=== PATIENT | female | born 1935 | race Caucasian/White ===

== ENCOUNTER 2017-04-25 18:11 | Emergency (ER) | payer MEDICARE, OTHER ==
[2016-09-05 12:34] VITALS: BMI 23.3
[~2017-04-25 18:11] MED LIST: ASPIRIN81 MG PO; AVAPRO150 MG PO; AVAPRO300 MG PO; HEPARIN SOD5000 U/ML SQ; HYDRALAZINE HCL25 MG PO; INDERAL10 MG PO; NORVASC5 MG PO; PRAVACHOL20 MG PO; PRAVASTATIN SOD10 MG PO; PROPRANOLOL HCL60 MG PO; PROTONIX40 MG PO; RISPERDAL0.5 MG PO; ZOFRAN4 MG PO
[2017-04-25 19:26] LABS: BASOPHILS 0.3 % (0-2); EOSINOPHILS 1.9 % (0-7); HEMATOCRIT 37.9 % (36.0-48.0); HEMOGLOBIN 12.2 g/dL (12-16); IMMATURE GRANULOCYTES 0.5 % (0-5); LYMPHOCYTES 17.2 % (15-50); MCH 31.1 pg (26.0-34.0); MCHC 32.2 g/dL (31.0-37.0); MCV 96.7 fL (80.0-100.0); NEUTROPHILS 69.1 % (40-80); PLATELET COUNT 188 10x3/uL (130-400); RBC 3.92 10x6/uL (4.00-5.40); WBC 7.8 10x3/uL (4.8-10.8)
[2017-04-25 19:44] LABS: APTT 23.4 SECONDS (22.8-39.4); INR 0.97 (0.85-1.17); PROTIME 12.7 SECONDS (11.6-15.0)
[2017-04-25 19:46] LABS: ALBUMIN 3.5 g/dL (3.4-5.0); ANION GAP 10.2 mmol/L (8-16); BILIRUBIN - TOTAL 0.48 mg/dL (0.2-1.3); CALCIUM 8.9 mg/dL (8.5-10.1); CARBON DIOXIDE 30.3 mmol/L (21.0-32.0); CREATININE - SERUM 1.1 mg/dL (0.6-1.3); POTASSIUM - SERUM 3.5 mmol/L (3.5-5.1); PROTEIN - SERUM 7.4 g/dL (6.4-8.2)
== END 2017-04-25 20:29 | disposition home or self-care (01) ==
LOC: D.ER 18:11
PROVIDERS: Physician Assistant Medical
DX: S00.93XA Contusion of unspecified part of head, initial encounter (principal); W01.0XXA Fall on same level from slipping, tripping and stumbling without subsequent striking against object, initial encounter; Y93.89 Activity, other specified; Y92.830 Public park as the place of occurrence of the external cause; R04.0 Epistaxis; I10 Essential (primary) hypertension; R09.89 Other specified symptoms and signs involving the circulatory and respiratory systems; M54.2 Cervicalgia

== ENCOUNTER 2017-07-31 08:47 | Emergency (ER) | payer MEDICARE, OTHER ==
[2016-09-05 12:34] VITALS: BMI 23.3
[2017-07-31 09:43] LABS: BASOPHILS 0.3 % (0-2); EOSINOPHILS 1.3 % (0-7); HEMATOCRIT 39.4 % (36.0-48.0); HEMOGLOBIN 12.9 g/dL (12-16); IMMATURE GRANULOCYTES 0.2 % (0-5); LYMPHOCYTES 14.2 % (15-50); MCH 31.2 pg (26.0-34.0); MCHC 32.7 g/dL (31.0-37.0); MCV 95.4 fL (80.0-100.0); MEAN PLATELET VOLUME 11.9 fL (7.4-10.4); MONOCYTES 10.6 % (2-11); NEUTROPHILS 73.4 % (40-80); PLATELET COUNT 202 10x3/uL (130-400); RBC 4.13 10x6/uL (4.00-5.40); RDW 13.5 % (11.5-14.5); WBC 9.4 10x3/uL (4.8-10.8)
[2017-07-31 09:59] LABS: ALBUMIN 3.8 g/dL (3.4-5.0); ANION GAP 13.6 mmol/L (8-16); BILIRUBIN - TOTAL 0.74 mg/dL (0.2-1.3); CALCIUM 9.9 mg/dL (8.5-10.1); CARBON DIOXIDE 26.9 mmol/L (21.0-32.0); CREATININE - SERUM 1.1 mg/dL (0.6-1.3); POTASSIUM - SERUM 3.5 mmol/L (3.5-5.1); PROTEIN - SERUM 7.8 g/dL (6.4-8.2)
[2017-07-31 10:05] LABS: INR 0.94 (0.85-1.17); PROTIME 12.4 SECONDS (11.6-15.0)
[2017-07-31 12:33] LABS: APPEARANCE CLEAR (CLEAR); BACTERIA FEW /hpf (NONE SEEN); BILIRUBIN NEGATIVE (NEGATIVE); COLOR YELLOW (YELLOW); EPITHELIAL CELLS RARE /hpf (0-5); GLUCOSE 50 mg/dL (NEGATIVE); KETONE MODERATE mg/dL (NEGATIVE); NITRITE NEGATIVE (NEGATIVE); PROTEIN NEGATIVE (NEGATIVE); RED CELLS - URINE RARE /hpf (0-5); UROBILINOGEN NORMAL (NORMAL)
--- NOTE | 2017-07-31 14:58 | NUR ---
Rehab Note- Acute Rehab Prescreen order received. Visited with the patient and daughter. Reviewed medical record- no acute medical management for acute inpatient rehab stay at this time. Notified KRYSTAL Romero- needs bedside commade, seems to be having issues of falling during the night when attempting to get up to go to the restroom. Thank you for this referral! Gabby Shah RN Clinical Liaison, [facility]
== END 2017-07-31 15:48 | disposition home or self-care (01) ==
LOC: D.ER 08:47
PROVIDERS: Emergency Medicine
DX: Z91.81 History of falling (principal); I10 Essential (primary) hypertension; W19.XXXA Unspecified fall, initial encounter; Y93.89 Activity, other specified; Y92.029 Unspecified place in mobile home as the place of occurrence of the external cause

== ENCOUNTER → 2017-08-22 09:17 | Outpatient (CLI) | payer MEDICARE, OTHER ==
[2016-09-05 12:34] VITALS: BMI 23.3
== END | disposition home or self-care (01) ==
LOC: D.CT 08-15 13:00
DX: R26.81 Unsteadiness on feet (principal); R93.8 Abnormal findings on diagnostic imaging of other specified body structures

== ENCOUNTER 2018-04-18 16:06 | Inpatient (IN) | payer MEDICARE, OTHER ==
[~2018-04-18] VITALS: Ht 162.6 cm; Wt 73.6 kg
--- NOTE | ~2018-04-18 | EC ---
PATIENT:SHANT MARTINEZ DATE OF SERVICE: 04/18/18 SEX: F MEDICAL RECORD: [id number] DATE OF : 35 LOCATION:D.MS [facility] AGE OF PATIENT: 82 ADMISSION DATE: 04/18/18 REFERRING PHYSICIAN: INTERPRETING PHYSICIAN: MENA YEN MD ECHOCARDIOGRAM REPORT ECHO CHARGES 4 ECHO COMPLETE Date: 04/19 CLINICAL DIAGNOSIS: CVA ECHOCARDIOGRAPHIC MEASUREMENTS (adult normal given) AC root (d.<3.7cm) 2.9 cm LV Septum d (<1.2 cm> 1.0 cm Valve Excursion 1.5 cm LV Septum (systole) 1.6 cm Left Atria (s.<4.0cm> 3.0 cm LVPW d(<1.2cm) 1.0 cm RV (d.<2.3cm) 1.5 cm LVPW (sytole) 1.9 cm LV diastole(<5.6CM) 4.7 cm MV E-F(>70mm/sec) cm LV systole 2.1 cm LVOT Diameter 1.5 cm MV exc.(>10mm) cm Est.ejection fraction (50-75%) % DOPPLER: LVIT cm/sec A 88.0 cm/sec E 90.0 cm/sec LA cm/sec RVSP 41.2 mmHg LVOT 86.0 cm/sec AOP1/2T m/s Asc. Ao 155 cm/sec RVOT 65.0 cm/sec RA cm/sec PA 72.0 cm/sec AV Gradient Peak 9.6 mmHg AV Mean 4.5 mmHg AV Area 1.3 cm MV Gradient Peak 4.4 mmHg MV Mean 1.6 mmHg MV Area cm COMMENTS: Hog Dropper: 1 RAFFY CARLOSOE Pie Bottomer: 4 Dr. Yen TAPE# PACS Pericardial Effusion N DATE OF SERVICE: PROCEDURE: Transthoracic echocardiogram. FINDINGS: 1. The patient has evidence of mild left ventricular hypertrophy. Inflow characteristics show pseudonormalization. Ejection fraction is 65% to 70%. 2. The left atrium is normal. 3. The aortic valve is normal. 4. The mitral valve has trace to mild mitral regurgitation. There is mitral ECHOCARDIOGRAM REPORT [id number] SHANT MARTINEZ annular calcification. 5. The tricuspid valve has moderate tricuspid regurgitation, RVSP of 41 mmHg. 6. The right ventricle is normal size, shape, and function. 7. The right atrium is normal. 8. The pulmonic valve has trace pulmonic insufficiency. CONCLUSIONS: The patient has evidence of mild hypertensive heart disease, otherwise normal echocardiogram for stated age. TRANSINT:[id number] Voice Confirmation ID: [id number] DOCUMENT ID: [id number] MENA YEN MD at 1702 CC: [id number] DICTATION DATE: 04/20/18 0752 HIP HOP ARTIST: 04/20/18 1117 [facility] IN [facility] [address] [id number]
[2018-04-18 17:21] LABS: BASOPHILS 0.5 % (0-2); EOSINOPHILS 2.1 % (0-7); HEMATOCRIT 37.1 % (36.0-48.0); IMMATURE GRANULOCYTES 0.2 % (0-5); LYMPHOCYTES 26.4 % (15-50); MCH 31.6 pg (26.0-34.0); MCHC 32.3 g/dL (31.0-37.0); MCV 97.6 fL (80.0-100.0); MONOCYTES 11.3 % (2-11); NEUTROPHILS 59.5 % (40-80); PLATELET COUNT 162 10x3/uL (130-400); RDW 13.6 % (11.5-14.5); WBC 6.2 10x3/uL (4.8-10.8)
[2018-04-18 17:27] LABS: APPEARANCE CLEAR (CLEAR); BILIRUBIN NEGATIVE (NEGATIVE); COLOR YELLOW (YELLOW); GLUCOSE 50 mg/dL (NEGATIVE); KETONE NEGATIVE (NEGATIVE); NITRITE NEGATIVE (NEGATIVE); PROTEIN 1+ mg/dL (NEGATIVE); UROBILINOGEN NORMAL (NORMAL)
[2018-04-18 17:29] LABS: BACTERIA FEW /hpf (NONE SEEN); EPITHELIAL CELLS 0-5 /hpf (0-5); RED CELLS - URINE 0-5 /hpf (0-5)
[2018-04-18 17:47] LABS: ALBUMIN 3.8 g/dL (3.4-5.0); ALKALINE PHOSPHATASE 85 U/L (46-116); ALT (SGPT) 7 U/L (10-68); BILIRUBIN - TOTAL 0.69 mg/dL (0.2-1.3); CALC OSMOLALITY 293 mosm/kg (275-300); CALCIUM 9.3 mg/dL (8.5-10.1); CARBON DIOXIDE 32.3 mmol/L (21.0-32.0); CHLORIDE - SERUM 106 mmol/L (98-107); CREATININE - SERUM 1.2 mg/dL (0.6-1.3); GLUCOSE 142 mg/dL (74-106); POTASSIUM - SERUM 3.8 mmol/L (3.5-5.1); PROTEIN - SERUM 7.5 g/dL (6.4-8.2); SODIUM 142 mmol/L (136-145); UREA NITROGEN 39 mg/dL (7-18); eGFR NON AFRICAN AMERICAN 45 mL/min (90-120)
[2018-04-18 17:58] LABS: CKMB 1.5 U/L (0.0-3.6); CREATINE KINASE 61 UL (21-215); PRO BNP 676 pg/mL (0-450); THYROID STIMULATING HORMONE 1.44 uIU/mL (0.36-3.74)
[2018-04-18 18:02] LABS: TROPONIN-I < 0.017 ng/mL (0.000-0.060)
[2018-04-18 19:23] VITALS: BP 150/55
[2018-04-19 00:26] VITALS: BP 170/61; Ht 162.6 cm; Wt 73.6 kg
[2018-04-19] MEDS ORDERED: INDERAL LA60 MG PO (00:47)
[2018-04-19] MEDS ORDERED: NORVASC5 MG PO (00:49)
[2018-04-19] MEDS ORDERED: BAYER CHEWABLE81 MG PO (00:49)
[2018-04-19 04:30] VITALS: BP 178/61
[2018-04-19 06:50] LABS: BASOPHILS 0.8 % (0-2); EOSINOPHILS 2.5 % (0-7); HEMATOCRIT 35.8 % (36.0-48.0); HEMOGLOBIN 11.6 g/dL (12-16); IMMATURE GRANULOCYTES 0.2 % (0-5); LYMPHOCYTES 28.2 % (15-50); MCH 31.1 pg (26.0-34.0); MCHC 32.4 g/dL (31.0-37.0); MEAN PLATELET VOLUME 12.1 fL (7.4-10.4); MONOCYTES 12.8 % (2-11); NEUTROPHILS 55.5 % (40-80); PLATELET COUNT 159 10x3/uL (130-400); RBC 3.73 10x6/uL (4.00-5.40); RDW 13.2 % (11.5-14.5); WBC 6.1 10x3/uL (4.8-10.8)
[2018-04-19 07:16] LABS: ANION GAP 9.2 mmol/L (8-16); CALCIUM 8.5 mg/dL (8.5-10.1); CARBON DIOXIDE 28.1 mmol/L (21.0-32.0); POTASSIUM - SERUM 3.3 mmol/L (3.5-5.1)
[2018-04-19 09:10] VITALS: BP 167/49
[2018-04-19 12:17] LABS: CKMB 2.6 U/L (0.0-3.6); CREATINE KINASE 89 UL (21-215)
[2018-04-19 12:19] LABS: TROPONIN-I < 0.017 ng/mL (0.000-0.060)
[2018-04-19 14:32] VITALS: BP 180/72
[2018-04-19 17:00] VITALS: BP 138/60
[2018-04-19 17:41] LABS: CKMB 2.5 U/L (0.0-3.6); CREATINE KINASE 86 UL (21-215)
[2018-04-19 17:48] LABS: TROPONIN-I < 0.017 ng/mL (0.000-0.060)
[2018-04-19 20:04] VITALS: BP 117/66
[2018-04-19 23:18] LABS: CKMB 2.1 U/L (0.0-3.6); CREATINE KINASE 77 UL (21-215)
[2018-04-19 23:19] LABS: TROPONIN-I < 0.017 ng/mL (0.000-0.060)
[2018-04-20 05:46] LABS: BASOPHILS 0.5 % (0-2); EOSINOPHILS 2.3 % (0-7); HEMATOCRIT 33.6 % (36.0-48.0); LYMPHOCYTES 26.8 % (15-50); MCH 30.7 pg (26.0-34.0); MCHC 32.7 g/dL (31.0-37.0); MEAN PLATELET VOLUME 11.9 fL (7.4-10.4); MONOCYTES 13.6 % (2-11); NEUTROPHILS 56.8 % (40-80); PLATELET COUNT 160 10x3/uL (130-400); RBC 3.58 10x6/uL (4.00-5.40); RDW 12.8 % (11.5-14.5); WBC 5.7 10x3/uL (4.8-10.8)
[2018-04-20 05:47] LABS: MCV 93.9 fL (80.0-100.0)
[2018-04-20 06:27] LABS: ALBUMIN 2.8 g/dL (3.4-5.0); ALKALINE PHOSPHATASE 68 U/L (46-116); ALT (SGPT) 9 U/L (10-68); BILIRUBIN - TOTAL 0.21 mg/dL (0.2-1.3); CALC OSMOLALITY 279 mosm/kg (275-300); CALCIUM 8.8 mg/dL (8.5-10.1); CARBON DIOXIDE 27.6 mmol/L (21.0-32.0); CHLORIDE - SERUM 107 mmol/L (98-107); CHOL - HDL RATIO 4.8 ratio (2.3-4.1); CHOLESTEROL, TOTAL 190 mg/dL (0-200); CREATININE - SERUM 0.7 mg/dL (0.6-1.3); GLUCOSE 120 mg/dL (74-106); HDL CHOLESTEROL 40 mg/dL (32-96); LDL CHOLESTEROL 128 mg/dL (0-100); LDL-HDL RATIO 3.2 ratio (1.5-3.5); POTASSIUM - SERUM 3.5 mmol/L (3.5-5.1); PROTEIN - SERUM 6.1 g/dL (6.4-8.2); SODIUM 139 mmol/L (136-145); TRIGLYCERIDE 113 mg/dL (30-200); UREA NITROGEN 16 mg/dL (7-18); eGFR NON AFRICAN AMERICAN 85 mL/min (90-120)
[2018-04-20 08:33] VITALS: BP 197/81
[2018-04-20 15:47] VITALS: BP 190/68
== END 2018-04-20 18:38 | DRG 64 ==
LOC: D.ER 16:06 → D.MS 22:28
PROVIDERS: Emergency Medicine; Family Medicine
DX: I63.9 Cerebral infarction, unspecified (principal); G92 Toxic encephalopathy; M62.82 Rhabdomyolysis; F01.50 Vascular dementia, unspecified severity, without behavioral disturbance, psychotic disturbance, mood disturbance, and anxiety; I10 Essential (primary) hypertension; E87.6 Hypokalemia; R79.89 Other specified abnormal findings of blood chemistry; D64.9 Anemia, unspecified

== ENCOUNTER 2018-04-20 16:25 | Inpatient (IN) | payer MEDICARE, OTHER ==
[~2018-04-20] VITALS: Ht 162.6 cm; Wt 61.2 kg
--- NOTE | ~2018-04-20 | RHP ---
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 HISTORY OF PRESENT ILLNESS: The patient is an 82-year-old female patient admitted to the inpatient rehab with a right middle cerebral artery infarction. She was brought into the ED on 04/16 by her daughters complaining of increasing confusion, short-term memory loss, and not eating much, home was in clutter and unlike her usual status of health. Daughter states this has going on for 2 weeks with progressively worsening. On exam, she was alert, disoriented, confused, fatigued, and had generalized weakness and poor balance. CT of her head was consistent with right middle cerebral artery CVA. She was noted to have UTI and a temperature of 100.9. She was admitted with Dr. Gomez's consult. Previously, she was independent without device for mobility and ADLs. She lives at [facility] and her meals are delivered to her. Currently, she is confused and disoriented at intervals. She reorients easily and her daughter is at her bedside. At times, she is [id number]-[id number] assist for ADLs and mobility. Her daughter plans to check her into an assisted living when she leaves rehab. Comorbidities include ischemic posterior temporal and occipital lobes, toxic metabolic encephalopathy, multi-infarct dementia, rhabdomyolysis, acute mental status changes, normocytic anemia, hypokalemia, UTI, hypertension, fever, fatigue, weakness, elevated D-dimer, and elevated BNP. PAST MEDICAL HISTORY: Significant for nothing in particular. PAST SURGICAL HISTORY: Includes hysterectomy. ALLERGIES: No known drug allergies. CURRENT MEDICATIONS: Really just include Inderal-LA 60 mg and chewable aspirin. HABITS: No alcohol or tobacco use. FAMILY HISTORY: Noncontributory. SOCIAL HISTORY: The patient once again will probably go to an assisted living from here. REVIEW OF SYSTEMS: Generally, does complain of weakness, worse on her left side. Denies cold, cough, or congestion. Denies any chest pain at this time. PHYSICAL EXAMINATION: VITAL SIGNS: Stable. GENERAL: An elderly female, in no acute distress. HEENT: Normocephalic and atraumatic. Mucosa moist. NECK: Supple. No lymphadenopathy. HISTORY AND PHYSICAL [id number] SHANT MARTINEZ LUNGS: Clear at this time. HEART: Regular rate and rhythm. ABDOMEN: Benign. EXTREMITIES: No clubbing, cyanosis, or edema. NEUROLOGIC: She does have noted weakness on her left side and some confusion. LABORATORY DATA: Admit labs show a white count of 4.7, H&H of 11.8 and 35.3, and platelet count was noted to be 173. Her sodium is 137, potassium 3.5, BUN and creatinine of 16 and 1.1, and blood sugars is noted to be 94. ASSESSMENT: This is an 82-year-old female patient admitted to rehab with a working diagnosis of right middle cerebral artery infarction with left body involvement. The patient has potential to make improvement. We will institute the following multidisciplinary therapies including, but not limited to physical, occupational, respiratory, speech, nutritional services, prosthetics and orthotics. Given her complex medical condition and risks for more complications, rehabilitation services cannot be provided at a low level of care such as a prison facility. PLAN: 1. Admit to [facility] for intensive inpatient therapy to include the following disciplines: A. Physical therapy to improve gait, all transfer skills and bed mobility to a modified independent level. B. Occupational therapy to improve activities of daily living to a modified independent level. C. Case management to assist with discharge planning and placement options. D. Nutrition to assist with nutritional needs. E. Rehabilitation nursing to assist in monitoring the patient's underlying medical conditions and to assist with any type of bowel or bladder management. 2. The patient's current medications and medical care will be continued. 3. The patient will be placed on standard fall precautions. 4. The patient's estimated length of stay is approximately 7-10 days. 5. We will discuss this patient during care team staff meeting this week. TRANSINT:[id number] Voice Confirmation ID: [id number] DOCUMENT ID: [id number] MOMO notes whether there has been none or any medical/functional change since admission: - No change since preadmission screen. MOMO attests patient continues to be appropriate for IRF: - Continues to be appropriate. HISTORY AND PHYSICAL [id number] SHANT MARTINEZ SCOTT MD at 1757 CC: [id number] DICTATION DATE: 04/21/18 0743 EARLY CHILDHOOD SPECIAL EDUCATOR: 04/21/18 0801 DIS IN 05/05/18 [facility] [address] [place] [address]
[~2018-04-20 16:25] MED LIST changes: +BAYER CHEWABLE81 MG PO; +INDERAL LA60 MG PO
[2018-04-20 18:22] VITALS: BP 180/67; BMI 23.2
[2018-04-20 19:00] VITALS: BP 144/59
[2018-04-21 06:55] LABS: BASOPHILS 0.6 % (0-2); EOSINOPHILS 2.8 % (0-7); HEMATOCRIT 35.3 % (36.0-48.0); HEMOGLOBIN 11.8 g/dL (12-16); LYMPHOCYTES 36.8 % (15-50); MCH 31.3 pg (26.0-34.0); MCHC 33.4 g/dL (31.0-37.0); MCV 93.6 fL (80.0-100.0); MEAN PLATELET VOLUME 11.8 fL (7.4-10.4); MONOCYTES 10.2 % (2-11); NEUTROPHILS 49.6 % (40-80); PLATELET COUNT 173 10x3/uL (130-400); RBC 3.77 10x6/uL (4.00-5.40); WBC 4.7 10x3/uL (4.8-10.8)
[2018-04-21 07:11] LABS: ANION GAP 6.7 mmol/L (8-16); CALCIUM 8.8 mg/dL (8.5-10.1); CARBON DIOXIDE 27.8 mmol/L (21.0-32.0); POTASSIUM - SERUM 3.5 mmol/L (3.5-5.1)
[2018-04-21 07:20] LABS: CREATININE - SERUM 1.1 mg/dL (0.6-1.3)
[2018-04-21 08:28] VITALS: BP 182/68
[2018-04-21 14:02] VITALS: Ht 162.6 cm; Wt 61.2 kg
[2018-04-21 19:00] VITALS: BP 200/75
[2018-04-22 06:58] LABS: BASOPHILS 1.1 % (0-2); EOSINOPHILS 2.5 % (0-7); HEMATOCRIT 34.9 % (36.0-48.0); HEMOGLOBIN 11.6 g/dL (12-16); LYMPHOCYTES 33.6 % (15-50); MCH 31.2 pg (26.0-34.0); MCHC 33.2 g/dL (31.0-37.0); MCV 93.8 fL (80.0-100.0); MEAN PLATELET VOLUME 11.8 fL (7.4-10.4); MONOCYTES 12.8 % (2-11); PLATELET COUNT 183 10x3/uL (130-400); RBC 3.72 10x6/uL (4.00-5.40); WBC 4.8 10x3/uL (4.8-10.8)
[2018-04-22 07:16] LABS: ANION GAP 8.3 mmol/L (8-16); CALCIUM 8.9 mg/dL (8.5-10.1); CARBON DIOXIDE 30.1 mmol/L (21.0-32.0); POTASSIUM - SERUM 3.4 mmol/L (3.5-5.1)
[2018-04-22 08:19] VITALS: BP 187/66
[2018-04-22 19:00] VITALS: BP 153/51
[2018-04-23 08:25] VITALS: BP 194/64
[2018-04-23 19:00] VITALS: BP 172/54
[2018-04-24 05:55] LABS: BASOPHILS 0.6 % (0-2); EOSINOPHILS 2.8 % (0-7); HEMATOCRIT 32.6 % (36.0-48.0); HEMOGLOBIN 10.5 g/dL (12-16); IMMATURE GRANULOCYTES 0.2 % (0-5); MCH 30.8 pg (26.0-34.0); MCHC 32.2 g/dL (31.0-37.0); MCV 95.6 fL (80.0-100.0); MEAN PLATELET VOLUME 11.8 fL (7.4-10.4); MONOCYTES 12.5 % (2-11); NEUTROPHILS 47.9 % (40-80); PLATELET COUNT 162 10x3/uL (130-400); RBC 3.41 10x6/uL (4.00-5.40); RDW 13.3 % (11.5-14.5)
[2018-04-24 06:19] LABS: ANION GAP 7.3 mmol/L (8-16); CALCIUM 8.7 mg/dL (8.5-10.1); CARBON DIOXIDE 32.8 mmol/L (21.0-32.0); CREATININE - SERUM 1.2 mg/dL (0.6-1.3)
[2018-04-24 06:20] LABS: POTASSIUM - SERUM 4.1 mmol/L (3.5-5.1)
[2018-04-24 08:14] VITALS: BP 183/60
[2018-04-24 19:00] VITALS: BP 127/73
[2018-04-26 08:00] VITALS: BP 164/53
[2018-04-26 20:00] VITALS: BP 203/64
[2018-04-27 07:28] LABS: BASOPHILS 0.6 % (0-2); EOSINOPHILS 3.6 % (0-7); HEMOGLOBIN 11.6 g/dL (12-16); IMMATURE GRANULOCYTES 0.2 % (0-5); MCH 30.9 pg (26.0-34.0); MCHC 32.2 g/dL (31.0-37.0); MEAN PLATELET VOLUME 11.5 fL (7.4-10.4); MONOCYTES 16.3 % (2-11); NEUTROPHILS 55.3 % (40-80); RBC 3.75 10x6/uL (4.00-5.40); RDW 13.2 % (11.5-14.5); WBC 4.7 10x3/uL (4.8-10.8)
[2018-04-27 07:40] LABS: ANION GAP 7.3 mmol/L (8-16); POTASSIUM - SERUM 4.3 mmol/L (3.5-5.1)
[2018-04-27 07:52] LABS: PLATELET COUNT 205 10x3/uL (130-400)
[2018-04-27 08:00] VITALS: BP 202/70
[2018-04-27 19:00] VITALS: BP 182/62
[2018-04-28 08:22] VITALS: BP 195/77
[2018-04-28 19:00] VITALS: BP 205/60
[2018-04-29 07:23] LABS: BASOPHILS 0.4 % (0-2); EOSINOPHILS 3.4 % (0-7); HEMATOCRIT 35.5 % (36.0-48.0); HEMOGLOBIN 11.4 g/dL (12-16); IMMATURE GRANULOCYTES 0.4 % (0-5); LYMPHOCYTES 29.5 % (15-50); MCH 30.9 pg (26.0-34.0); MCHC 32.1 g/dL (31.0-37.0); MCV 96.2 fL (80.0-100.0); MEAN PLATELET VOLUME 11.5 fL (7.4-10.4); MONOCYTES 11.2 % (2-11); NEUTROPHILS 55.1 % (40-80); PLATELET COUNT 209 10x3/uL (130-400); RBC 3.69 10x6/uL (4.00-5.40); RDW 13.6 % (11.5-14.5); WBC 4.5 10x3/uL (4.8-10.8)
[2018-04-29 07:44] LABS: ANION GAP 8.9 mmol/L (8-16); CALCIUM 8.9 mg/dL (8.5-10.1); CARBON DIOXIDE 33.1 mmol/L (21.0-32.0)
[2018-04-29 08:16] VITALS: BP 184/80
[2018-04-29 19:00] VITALS: BP 204/61
[2018-04-30 08:00] VITALS: BP 205/71
[2018-04-30 19:52] VITALS: BP 151/58
[2018-05-01 07:01] LABS: BASOPHILS 0.8 % (0-2); EOSINOPHILS 3.3 % (0-7); HEMOGLOBIN 10.9 g/dL (12-16); IMMATURE GRANULOCYTES 0.2 % (0-5); LYMPHOCYTES 35.4 % (15-50); MCHC 32.1 g/dL (31.0-37.0); MCV 96.6 fL (80.0-100.0); MEAN PLATELET VOLUME 11.5 fL (7.4-10.4); MONOCYTES 10.3 % (2-11); PLATELET COUNT 219 10x3/uL (130-400); RBC 3.52 10x6/uL (4.00-5.40); RDW 13.9 % (11.5-14.5); WBC 4.9 10x3/uL (4.8-10.8)
[2018-05-01 07:18] LABS: ANION GAP 8.9 mmol/L (8-16); CREATININE - SERUM 1.2 mg/dL (0.6-1.3)
[2018-05-01 07:21] LABS: POTASSIUM - SERUM 4.9 mmol/L (3.5-5.1)
[2018-05-01 08:41] VITALS: BP 131/66
[2018-05-01 19:55] VITALS: BP 138/43
[2018-05-02 08:00] VITALS: BP 159/75
[2018-05-02 20:00] VITALS: BP 138/57
[2018-05-03 08:11] VITALS: BP 156/75
[2018-05-03 18:00] VITALS: BP 169/79
[2018-05-04 06:37] LABS: BASOPHILS 0.6 % (0-2); EOSINOPHILS 3.8 % (0-7); HEMOGLOBIN 11.1 g/dL (12-16); LYMPHOCYTES 29.9 % (15-50); MCH 31.4 pg (26.0-34.0); MCHC 32.6 g/dL (31.0-37.0); MCV 96.3 fL (80.0-100.0); MEAN PLATELET VOLUME 11.8 fL (7.4-10.4); MONOCYTES 10.2 % (2-11); NEUTROPHILS 55.5 % (40-80); PLATELET COUNT 218 10x3/uL (130-400); RBC 3.53 10x6/uL (4.00-5.40); RDW 14.1 % (11.5-14.5); WBC 5.3 10x3/uL (4.8-10.8)
[2018-05-04 06:59] LABS: CALCIUM 8.7 mg/dL (8.5-10.1)
[2018-05-04 07:52] VITALS: BP 176/66
[2018-05-04] MEDS ORDERED: HYDRALAZINE HCL25 MG PO (08:04)
[2018-05-04] MEDS ORDERED: RISPERDAL0.5 MG PO (08:04)
[2018-05-04] MEDS ORDERED: NORVASC5 MG PO (08:04)
[2018-05-04] MEDS ORDERED: AVAPRO150 MG PO (08:04)
[2018-05-04 19:00] VITALS: BP 130/54; BP 160/63
[2018-05-05 08:00] VITALS: BP 152/66
== END 2018-05-05 11:45 | DRG 56 ==
LOC: D.REHAB 16:25
PROVIDERS: Emergency Medicine
DX: I69.354 Hemiplegia and hemiparesis following cerebral infarction affecting left non-dominant side (principal); G92 Toxic encephalopathy; M62.82 Rhabdomyolysis; N39.0 Urinary tract infection, site not specified; F03.90 Unspecified dementia, unspecified severity, without behavioral disturbance, psychotic disturbance, mood disturbance, and anxiety; D64.9 Anemia, unspecified; E87.6 Hypokalemia; I10 Essential (primary) hypertension; R53.83 Other fatigue

== ENCOUNTER → 2018-09-10 12:29 | Outpatient (CLI) | payer MEDICARE, OTHER ==
[2018-04-21 14:02] VITALS: BMI 23.1
[2018-09-10 14:29] LABS: APPEARANCE HAZY (CLEAR); BILIRUBIN NEGATIVE (NEGATIVE); COLOR YELLOW (YELLOW); GLUCOSE NEGATIVE (NEGATIVE); KETONE NEGATIVE (NEGATIVE); NITRITE NEGATIVE (NEGATIVE); PROTEIN TRACE mg/dL (NEGATIVE); UROBILINOGEN NORMAL (NORMAL)
[2018-09-10 14:30] LABS: BACTERIA NONE SEEN /hpf (NONE SEEN); CALCIUM OXALATE CRYSTALS 25-50 /hpf (NONE SEEN); EPITHELIAL CELLS 0-5 /hpf (0-5); RED CELLS - URINE NONE SEEN /hpf (0-5); WHITE CELLS - URINE 0-5 /hpf (0-5); YEAST NONE SEEN /hpf (NONE SEEN)
== END | disposition home or self-care (01) ==
LOC: D.LABREF 12:29
PROVIDERS: Family Medicine
DX: R30.0 Dysuria (principal)

== ENCOUNTER 2018-09-27 18:11 | Inpatient (IN) | payer MEDICARE, OTHER ==
[~2018-09-27] VITALS: Ht 162.6 cm; Wt 53.1 kg
[2018-09-27 20:19] VITALS: BP 198/87
[2018-09-27 20:54] LABS: BASOPHILS 0.2 % (0-2); EOSINOPHILS 1.4 % (0-7); HEMATOCRIT 36.6 % (36.0-48.0); HEMOGLOBIN 11.9 g/dL (12-16); IMMATURE GRANULOCYTES 0.2 % (0-5); LYMPHOCYTES 11.2 % (15-50); MCH 31.6 pg (26.0-34.0); MCHC 32.5 g/dL (31.0-37.0); MCV 97.1 fL (80.0-100.0); MEAN PLATELET VOLUME 11.1 fL (7.4-10.4); MONOCYTES 7.4 % (2-11); NEUTROPHILS 79.6 % (40-80); PLATELET COUNT 190 10x3/uL (130-400); RBC 3.77 10x6/uL (4.00-5.40); RDW 13.6 % (11.5-14.5); WBC 9.7 10x3/uL (4.8-10.8)
[2018-09-27 21:04] LABS: APTT 23.8 SECONDS (22.8-39.4); INR 0.96 (0.85-1.17); PROTIME 12.3 SECONDS (11.6-15.0)
[2018-09-27 21:11] LABS: ALBUMIN 3.5 g/dL (3.4-5.0); ANION GAP 15.5 mmol/L (8-16); BILIRUBIN - TOTAL 0.42 mg/dL (0.2-1.3); CALCIUM 9.2 mg/dL (8.5-10.1); CARBON DIOXIDE 25.9 mmol/L (21.0-32.0); CREATININE - SERUM 1.2 mg/dL (0.6-1.3); POTASSIUM - SERUM 3.4 mmol/L (3.5-5.1); PROTEIN - SERUM 7.1 g/dL (6.4-8.2)
[2018-09-27 21:20] VITALS: BP 134/38
[2018-09-27 22:05] LABS: APPEARANCE CLEAR (CLEAR); BILIRUBIN NEGATIVE (NEGATIVE); COLOR STRAW (YELLOW); GLUCOSE NEGATIVE (NEGATIVE); KETONE NEGATIVE (NEGATIVE); NITRITE NEGATIVE (NEGATIVE); PROTEIN NEGATIVE (NEGATIVE); UROBILINOGEN NORMAL (NORMAL)
[2018-09-28] MEDS ORDERED: DUREZOL5 ML RIGHT EYE (03:32)
[2018-09-28] MEDS ORDERED: NORVASC5 MG PO (03:41)
[2018-09-28 04:00] VITALS: BP 139/61
[2018-09-28 05:26] VITALS: BP 145/58; BMI 20.1
[2018-09-28 06:54] LABS: BASOPHILS 0.2 % (0-2); EOSINOPHILS 2.3 % (0-7); HEMATOCRIT 35.6 % (36.0-48.0); HEMOGLOBIN 11.3 g/dL (12-16); IMMATURE GRANULOCYTES 0.2 % (0-5); LYMPHOCYTES 11.7 % (15-50); MCH 30.8 pg (26.0-34.0); MCHC 31.7 g/dL (31.0-37.0); MEAN PLATELET VOLUME 11.8 fL (7.4-10.4); MONOCYTES 8.5 % (2-11); NEUTROPHILS 77.1 % (40-80); PLATELET COUNT 189 10x3/uL (130-400); RBC 3.67 10x6/uL (4.00-5.40); RDW 13.6 % (11.5-14.5); WBC 8.8 10x3/uL (4.8-10.8)
[2018-09-28 07:06] LABS: ANION GAP 10.7 mmol/L (8-16); CALCIUM 9.3 mg/dL (8.5-10.1); CREATININE - SERUM 1.2 mg/dL (0.6-1.3); POTASSIUM - SERUM 3.7 mmol/L (3.5-5.1)
[2018-09-28 08:24] VITALS: BP 166/63
[2018-09-28 12:00] VITALS: BP 174/54
[2018-09-28 15:09] VITALS: Ht 162.6 cm; Wt 53.1 kg
[2018-09-28 16:13] VITALS: BP 170/53
[2018-09-28 21:47] VITALS: BP 174/70
[2018-09-29 06:41] LABS: ANION GAP 17.1 mmol/L (8-16); BILIRUBIN - TOTAL 0.53 mg/dL (0.2-1.3); CARBON DIOXIDE 21.8 mmol/L (21.0-32.0); POTASSIUM - SERUM 3.9 mmol/L (3.5-5.1); PROTEIN - SERUM 5.9 g/dL (6.4-8.2)
[2018-09-29 06:45] LABS: ALBUMIN 2.5 g/dL (3.4-5.0)
[2018-09-29 08:15] VITALS: BP 142/54
[2018-09-29 11:31] LABS: BASOPHILS 0.1 % (0-2); EOSINOPHILS 1.7 % (0-7); HEMATOCRIT 30.6 % (36.0-48.0); HEMOGLOBIN 9.9 g/dL (12-16); IMMATURE GRANULOCYTES 0.2 % (0-5); LYMPHOCYTES 6.8 % (15-50); MCH 31.3 pg (26.0-34.0); MCHC 32.4 g/dL (31.0-37.0); MCV 96.8 fL (80.0-100.0); MEAN PLATELET VOLUME 11.5 fL (7.4-10.4); NEUTROPHILS 84.2 % (40-80); RBC 3.16 10x6/uL (4.00-5.40); RDW 13.2 % (11.5-14.5); WBC 9.7 10x3/uL (4.8-10.8)
[2018-09-29 11:32] LABS: PLATELET COUNT 151 10x3/uL (130-400)
[2018-09-29 12:07] VITALS: BP 137/49
--- NOTE | 2018-09-29 14:39 | MORECARE ---
CASE MANAGEMENT DISCHARGE SUMMARY PATIENT: SHANT MARTINEZ UNIT: [id number] ADM DATE: 09/27/18 AGE: 83 : 35 SEX: F ROOM/BED: D.2239 AUTHOR: ELSI ORDAZ PHYSICIAN: REFERRING PHYSICIAN: CHARY ARVIZU MD DATE OF SERVICE: 09/29/18 Discharge Plan Patient Name: SHANT MARTINEZ [facility] [facility] 1935 Planned Disposition: Alf Facility Anticipated Discharge Date: Discharge Date: Expected LOS: Initial Reviewer: [email or web address] Initial Review Date: 09/29/2018 Generated: 09/29/18 3:39 pm DCPIA - Discharge Planning Initial Assessment Updated by [email or web address]: Roxann Giron on 09/29/18 2:38 pm * Is the patient Alert and Oriented? Yes * How many steps to enter\exit or inside your home? 0/0 * PCP Dr. Swanson * Pharmacy [facility] on [address] * Preadmission Environment Assisted Living * Facility Name [facility] * ADLs Independent * Equipment Walker * List name and contact numbers for known caregivers / representatives who currently or will assist patient after discharge: Ioana [facility] - [phone] Fani Adame [facility] - [phone] * Verbal permission to speak to the caregivers and representatives has been obtained from the patient. Yes * Community resources currently utilized Home Health * Please name any agencies selected above. [place] [facility] * Additional services required to return to the preadmission environment? Yes * Can the patient safely return to the preadmission environment? No * Has this patient been hospitalized within the prior 30 days at any hospital? No Patient Name: SHANT MARTINEZ Page 15808 at 1439 All edits/amendments must be made on the electronic document DICTATION DATE: 09/29/18 1439 JOB PLACEMENT COUNSELOR: RICHA 09/29/18 143 RPT#: [id number] DC DATE: STATUS: ADM IN [facility] [address] [place] [address] END OF REPORT
--- NOTE | 2018-09-29 14:47 | MORECARE ---
CASE MANAGEMENT DISCHARGE SUMMARY PATIENT: SHANT MARTINEZ UNIT: [id number] ADM DATE: 09/27/18 AGE: 83 : 35 SEX: F ROOM/BED: D.2239 AUTHOR: ELSI ORDAZ PHYSICIAN: REFERRING PHYSICIAN: CHARY ARVIZU MD DATE OF SERVICE: 09/29/18 Discharge Plan Patient Name: SHANT MARTINEZ Facility: [facility]:[place] : 1935 Planned Disposition: Nursing Home Facility Anticipated Discharge Date: Discharge Date: Expected LOS: Initial Reviewer: [email or web address] Initial Review Date: 09/29/2018 Generated: 09/29/18 3:47 pm Comments DCP- Discharge Planning Updated by [email or web address]: Roxann Giron on 09/29/18 1:[address] Patient Name: SHANT MARTINEZ Admission Status: ER Accout number: [id number] Admission Date: 09-27-2018 : 1935 Admission Diagnosis: Attending: CHARY ARVIZU Current LOS: 2 Anticipated DC Date: Planned Disposition: Nursing Home Facility Primary Insurance: MEDICARE A & B Discharge Planning Comments: CM met with patient and her daughter (Ioana) to discuss discharge planning. Patient is drowsy from surgery and daughter answers the questions asked. States he mom lives at [facility] in assisted living. States she is independent with her ADL's. States [facility] provides meals and activities. States her mother does not drive, but her and her sister drive her where she needs to go. States her mother walks independently, but [facility] has a walker if she needs one. States her and her sister would like her to go to [facility] and rehab prior to discharge to [facility]. States her sister, Fani, has already contacted [facility] and Rehab. I called and spoke to Yara and referral sent. CM will continue to follow and assist with discharge planning/needs. Heating Fixture Tender: Roxann Giron DCPIA - Discharge Planning Initial Assessment Updated by [email or web address]: Roxann Giron on 09/29/18 2:38 pm * Is the patient Alert and Oriented? Yes * How many steps to enter\exit or inside your home? 0/0 * PCP Dr. Swanson * Pharmacy [facility] on [facility] * Preadmission Environment Assisted Living * Facility Name [facility] * ADLs Independent * Equipment Walker * List name and contact numbers for known caregivers / representatives who currently or will assist patient after discharge: Ioana [facility] - [phone] Fani Adame - [facility] - [phone] * Verbal permission to speak to the caregivers and representatives has been obtained from the patient. Yes * Community resources currently utilized Home Health * Please name any agencies selected above. [place] [facility] * Additional services required to return to the preadmission environment? Yes * Can the patient safely return to the preadmission environment? No * Has this patient been hospitalized within the prior 30 days at any hospital? No Last DP export: 09/29/18 1:39 pm Patient Name: SHANT MARTINEZ Page 61881 at 1447 All edits/amendments must be made on the electronic document DICTATION DATE: 09/29/181446 MANAGER CONTACT: RICHA 09/29/187 RPT#: [id number] DC DATE: STATUS: ADM IN [facility] [address] [place] [address] END OF REPORT
--- NOTE | 2018-09-29 15:05 | MORECARE ---
CASE MANAGEMENT DISCHARGE SUMMARY PATIENT: SHANT MARTINEZ UNIT: [id number] ADM DATE: 09/27/18 AGE: 83 : 35 SEX: F ROOM/BED: D.2239 AUTHOR: ELSI ORDAZ PHYSICIAN: REFERRING PHYSICIAN: CHARY ARVIZU MD DATE OF SERVICE: 09/29/18 Discharge Plan Patient Name: SHANT MARTINEZ Facility: [facility]:[place] : 1935 Planned Disposition: Detention Facility Anticipated Discharge Date: Discharge Date: Expected LOS: Initial Reviewer: [email or web address] Initial Review Date: 09/29/2018 Generated: 09/29/18 4:05 pm Comments DCP- Discharge Planning Updated by [email or web address]: Roxann Giron on 09/29/18 1:[address] Patient Name: SHANT MARTINEZ Admission Status: ER Accout number: [id number] Admission Date: 09-27-2018 : 1935 Admission Diagnosis: Attending: CHARY ARVIZU Current LOS: 2 Anticipated DC Date: Planned Disposition: Detention Facility Primary Insurance: MEDICARE A & B Discharge Planning Comments: CM met with patient and her daughter (Ioana) to discuss discharge planning. Patient is drowsy from surgery and daughter answers the questions asked. States he mom lives at [facility] in assisted living. States she is independent with her ADL's. States [facility] provides meals and activities. States her mother does not drive, but her and her sister drive her where she needs to go. States her mother walks independently, but [facility] has a walker if she needs one. States her and her sister would like her to go to [facility] and rehab prior to discharge to [facility]. States her sister, Fani, has already contacted [facility] and Rehab. I called and spoke to Yara and referral sent. CM will continue to follow and assist with discharge planning/needs. Dipper Operator: Roxann Giron DCPIA - Discharge Planning Initial Assessment Updated by [email or web address]: Roxann Giron on 09/29/18 2:38 pm * Is the patient Alert and Oriented? Yes * How many steps to enter\exit or inside your home? 0/0 * PCP Dr. Swanson * Pharmacy [facility] on [facility] * Preadmission Environment Assisted Living * Facility Name [facility] * ADLs Independent * Equipment Walker * List name and contact numbers for known caregivers / representatives who currently or will assist patient after discharge: Ioana [facility] - [phone] Fani Adame - [facility] - [phone] * Verbal permission to speak to the caregivers and representatives has been obtained from the patient. Yes * Community resources currently utilized Home Health * Please name any agencies selected above. [place] [facility] * Additional services required to return to the preadmission environment? Yes * Can the patient safely return to the preadmission environment? No * Has this patient been hospitalized within the prior 30 days at any hospital? No External Providers External Provider: [facility] Next Contact Date: Service Request Date: Service Type: Resolution: Reviewer: Comments: Last DP export: 09/29/18 1:47 pm Patient Name: SHANT MARTINEZ Page 61464 at 1505 All edits/amendments must be made on the electronic document DICTATION DATE: 09/29/18 1505 RADIO ELECTRONICS TECHNICIAN: RICHA 09/29/18 1505 RPT#: [id number] DC DATE: STATUS: ADM IN [facility] [address] [place] [address] END OF REPORT
[2018-09-29 16:40] VITALS: BP 132/44
[2018-09-29 20:00] VITALS: BP 141/50
[2018-09-30] VITALS: BP 144/54
[2018-09-30 04:00] VITALS: BP 144/60
[2018-09-30 05:45] LABS: BASOPHILS 0.1 % (0-2); EOSINOPHILS 0.3 % (0-7); HEMATOCRIT 28.7 % (36.0-48.0); HEMOGLOBIN 9.4 g/dL (12-16); IMMATURE GRANULOCYTES 0.3 % (0-5); LYMPHOCYTES 7.1 % (15-50); MCH 31.4 pg (26.0-34.0); MCHC 32.8 g/dL (31.0-37.0); MEAN PLATELET VOLUME 11.8 fL (7.4-10.4); MONOCYTES 12.4 % (2-11); NEUTROPHILS 79.8 % (40-80); PLATELET COUNT 152 10x3/uL (130-400); RBC 2.99 10x6/uL (4.00-5.40); RDW 13.3 % (11.5-14.5); WBC 8.9 10x3/uL (4.8-10.8)
[2018-09-30 06:13] LABS: ALBUMIN 2.2 g/dL (3.4-5.0); ANION GAP 12.7 mmol/L (8-16); BILIRUBIN - TOTAL 0.57 mg/dL (0.2-1.3); CREATININE - SERUM 1.2 mg/dL (0.6-1.3); POTASSIUM - SERUM 3.7 mmol/L (3.5-5.1); PROTEIN - SERUM 5.6 g/dL (6.4-8.2)
[2018-09-30 08:34] VITALS: BP 135/63
[2018-09-30 12:19] VITALS: BP 164/60
--- NOTE | 2018-09-30 13:36 | MORECARE ---
CASE MANAGEMENT DISCHARGE SUMMARY PATIENT: SHANT MARTINEZ UNIT: [id number] ADM DATE: 09/27/18 AGE: 83 : 35 SEX: F ROOM/BED: D.2239 AUTHOR: ELSI ORDAZ PHYSICIAN: REFERRING PHYSICIAN: CHARY ARVIZU MD DATE OF SERVICE: 09/30/18 Discharge Plan Patient Name: SHATN MARTINEZ Facility: [facility]:[place] : 1935 Planned Disposition: Assisted Facility Anticipated Discharge Date: Discharge Date: Expected LOS: Initial Reviewer: [email or web address] Initial Review Date: 09/29/2018 Generated: 09/30/18 2:36 pm Comments DCP- Discharge Planning Updated by [email or web address]: Roxann Giron on 09/30/18 12:[address] [facility] states they could accept the patient tomorrow if insurance is verified. She will notify me tomorrow. CM will continue to follow and assist with discharge planning/needs. DCP- Discharge Planning Updated by [email or web address]: Roxann Giron on 09/29/18 1:[address] Patient Name: SHANT MARTINEZ Admission Status: ER Accout number: [id number] Admission Date: 09-27-2018 : 1935 Admission Diagnosis: Attending: CHARY ARVIZU Current LOS: 2 Anticipated DC Date: Planned Disposition: Assisted Facility Primary Insurance: MEDICARE A & B Discharge Planning Comments: CM met with patient and her daughter (Ioana) to discuss discharge planning. Patient is drowsy from surgery and daughter answers the questions asked. States he mom lives at [facility] in assisted living. States she is independent with her ADL's. States [facility] provides meals and activities. States her mother does not drive, but her and her sister drive her where she needs to go. States her mother walks independently, but [facility] has a walker if she needs one. States her and her sister would like her to go to [facility] and rehab prior to discharge to [facility]. States her sister, Fani, has already contacted [facility] and Rehab. I called and spoke to Yara and referral sent. CM will continue to follow and assist with discharge planning/needs. Mechanical Manufacturing Engineer: Roxann Giron DCPIA - Discharge Planning Initial Assessment Updated by [email or web address]: Roxann Giron on 09/29/18 2:38 pm * Is the patient Alert and Oriented? Yes * How many steps to enter\exit or inside your home? 0/0 * PCP Dr. Swanson * Pharmacy [facility] on [facility] * Preadmission Environment Assisted Living * Facility Name [facility] * ADLs Independent * Equipment Walker * List name and contact numbers for known caregivers / representatives who currently or will assist patient after discharge: Ioana [facility] - [phone] Fani Adame [facility] - [phone] * Verbal permission to speak to the caregivers and representatives has been obtained from the patient. Yes * Community resources currently utilized Home Health * Please name any agencies selected above. [place] [facility] * Additional services required to return to the preadmission environment? Yes * Can the patient safely return to the preadmission environment? No * Has this patient been hospitalized within the prior 30 days at any hospital? No Last DP export: 09/29/18 2:05 pm Patient Name: SHANT MARTINEZ Page 13320 at 1336 All edits/amendments must be made on the electronic document DICTATION DATE: 09/30/181334 WOOD MODEL BUILDER: RICHA 09/30/181334 RPT#: [id number] DC DATE: STATUS: ADM IN [facility] [address] [place] [address] END OF REPORT
[2018-09-30 16:54] VITALS: BP 175/61
[2018-09-30 20:00] VITALS: BP 149/57
[2018-10-01] VITALS: BP 135/60
[2018-10-01 04:00] VITALS: BP 150/48
[2018-10-01 08:33] LABS: ANION GAP 11.4 mmol/L (8-16); BILIRUBIN - TOTAL 0.55 mg/dL (0.2-1.3); CALCIUM 8.2 mg/dL (8.5-10.1); CARBON DIOXIDE 26.3 mmol/L (21.0-32.0); POTASSIUM - SERUM 3.7 mmol/L (3.5-5.1); PROTEIN - SERUM 5.6 g/dL (6.4-8.2)
[2018-10-01 09:11] VITALS: BP 154/47
[2018-10-01 10:30] LABS: HEMATOCRIT 26.4 % (36.0-48.0); HEMOGLOBIN 8.9 g/dL (12-16); LYMPHOCYTES 9.8 % (15-50); MCH 32.6 pg (26.0-34.0); MCHC 33.7 g/dL (31.0-37.0); MCV 96.7 fL (80.0-100.0); MEAN PLATELET VOLUME 11.7 fL (7.4-10.4); NEUTROPHILS 76.5 % (40-80); PLATELET COUNT 137 10x3/uL (130-400); RBC 2.73 10x6/uL (4.00-5.40); RDW 14.1 % (11.5-14.5); WBC 7.5 10x3/uL (4.8-10.8)
[2018-10-01 12:40] VITALS: BP 170/67
[2018-10-01 16:26] VITALS: BP 166/57
[2018-10-01 20:29] VITALS: BP 143/74
[2018-10-02 00:05] VITALS: BP 174/65
[2018-10-02 04:49] VITALS: BP 174/66
[2018-10-02 05:34] LABS: ALBUMIN 1.9 g/dL (3.4-5.0); ANION GAP 10.2 mmol/L (8-16); BILIRUBIN - TOTAL 0.6 mg/dL (0.2-1.3); CALCIUM 8.1 mg/dL (8.5-10.1); CARBON DIOXIDE 27.5 mmol/L (21.0-32.0); POTASSIUM - SERUM 3.7 mmol/L (3.5-5.1); PROTEIN - SERUM 5.7 g/dL (6.4-8.2)
[2018-10-02 05:35] LABS: BASOPHILS 0.3 % (0-2); EOSINOPHILS 2.2 % (0-7); HEMATOCRIT 27.9 % (36.0-48.0); HEMOGLOBIN 9.2 g/dL (12-16); IMMATURE GRANULOCYTES 0.3 % (0-5); LYMPHOCYTES 14.9 % (15-50); MCH 31.3 pg (26.0-34.0); MCV 94.9 fL (80.0-100.0); MEAN PLATELET VOLUME 11.5 fL (7.4-10.4); MONOCYTES 11.1 % (2-11); NEUTROPHILS 71.2 % (40-80); PLATELET COUNT 191 10x3/uL (130-400); RBC 2.94 10x6/uL (4.00-5.40); RDW 13.5 % (11.5-14.5); WBC 7.7 10x3/uL (4.8-10.8)
[2018-10-02 08:49] VITALS: BP 174/72
[2018-10-02 11:45] VITALS: BP 177/66
--- NOTE | 2018-10-02 14:01 | MORECARE ---
CASE MANAGEMENT DISCHARGE SUMMARY PATIENT: SHANT MARTINEZ UNIT: [id number] ADM DATE: 09/27/18 AGE: 83 : 35 SEX: F ROOM/BED: D.2239 AUTHOR: ELSI ORDAZ PHYSICIAN: REFERRING PHYSICIAN: CHARY ARVIZU MD DATE OF SERVICE: 10/02/18 Discharge Plan Patient Name: SHANT MARTINEZ Facility: [facility]:[place] : 1935 Planned Disposition: [facility] Facility Anticipated Discharge Date: Discharge Date: Expected LOS: Initial Reviewer: [email or web address] Initial Review Date: 09/29/2018 Generated: 10/02/18 3:01 pm Comments DCP- Discharge Planning Updated by [email or web address]: Roxann Mack on 10/02/18 1:[address] Spoke with Henna at [facility] and Rehab. She states she will inform Yara that patient now has DC orders. I faxed DC MAR and orders. She will go to [facility] to a skilled (Medicare) bed today via ambulance. email marketing coordinator and nurse (Luz Elena) informed. DCP- Discharge Planning Updated by [email or web address]: Roxann Mack on 09/30/18 12:[address] Received a call from Y[facility] Yara states they could accept the patient tomorrow if insurance is verified. She will notify me tomorrow. CM will continue to follow and assist with discharge planning/needs. DCP- Discharge Planning Updated by [email or web address]: Roxann Giron on 09/29/18 1:[address] Patient Name: SHANT MARTINEZ Admission Status: ER Accout number: [id number] Admission Date: 09-27-2018 : 1935 Admission Diagnosis: Attending: CHARY ARVIZU Current LOS: 2 Anticipated DC Date: Planned Disposition: [facility] Facility Primary Insurance: MEDICARE A & B Discharge Planning Comments: CM met with patient and her daughter (Ioana) to discuss discharge planning. Patient is drowsy from surgery and daughter answers the questions asked. States he mom lives at [facility] in assisted living. States she is independent with her ADL's. States [facility] provides meals and activities. States her mother does not drive, but her and her sister drive her where she needs to go. States her mother walks independently, but [facility] has a walker if she needs one. States her and her sister would like her to go to [facility] and rehab prior to discharge to [facility]. States her sister, Fani, has already contacted [facility] and Rehab. I called and spoke to Yara and referral sent. CM will continue to follow and assist with discharge planning/needs. Chassis Inspector: Roxann Giron DCPIA - Discharge Planning Initial Assessment Updated by [email or web address]: Roxann Giron on 09/29/18 2:38 pm * Is the patient Alert and Oriented? Yes * How many steps to enter\exit or inside your home? 0/0 * PCP Dr. Swanson * Pharmacy [facility] on [facility] * Preadmission Environment Assisted Living * Facility Name [facility] * ADLs Independent * Equipment Walker * List name and contact numbers for known caregivers / representatives who currently or will assist patient after discharge: Ioana [facility] - [phone] [facility] - [phone] * Verbal permission to speak to the caregivers and representatives has been obtained from the patient. Yes * Community resources currently utilized Home Health * Please name any agencies selected above. [facility] * Additional services required to return to the preadmission environment? Yes * Can the patient safely return to the preadmission environment? No * Has this patient been hospitalized within the prior 30 days at any hospital? No Coverage Notice Reviewer: [id number] - Roxann Giron Notice Issued Date-Time: 10/02/2018 13:54 Notice Type: IM Discharge Notice Notice Delivered To: Family Member Relationship to Patient: Daughter Childcare Teacher Name: Fani Adame Delivery Method: HAND - Hand Delivered Clau Days: Prior Verbal Notification: Recipient Understood Notice: Yes Recipient Signature: Yes Med Rec Note Co-signed by Attending: Coverage Notice Comment: IMM explained, signed, copy given, original placed in MR Last DP export: 09/30/18 12:36 pm Patient Name: SHANT MARTINEZ Page [id number] at 1401 All edits/amendments must be made on the electronic document DICTATION DATE: 10/02/18 1400 FABRIC WORKER: RICHA 10/02/18 1400 RPT#: [id number] DC DATE: STATUS: ADM IN [facility] [address] [place] [address] END OF REPORT
[2018-10-02] MEDS ORDERED: HYDROCODON-ACE1 EAC7 PO (14:17)
[2018-10-02] MEDS ORDERED: ASPIRIN325 MG PO (14:28)
--- NOTE | 2018-10-02 17:06 | MORECARE ---
CASE MANAGEMENT DISCHARGE SUMMARY PATIENT: SHANT MARTINEZ UNIT: [id number] ADM DATE: 09/27/18 AGE: 83 : 35 SEX: F ROOM/BED: D.2239 AUTHOR: ELSI ORDAZ PHYSICIAN: REFERRING PHYSICIAN: CHARY ARVIZU MD DATE OF SERVICE: 10/02/18 Discharge Plan Patient Name: SHANT MARTINEZ Facility: [facility]:[place] : 1935 Planned Disposition: [facility] Facility Anticipated Discharge Date: Discharge Date: 10/02/2018 Expected LOS: 0 Initial Reviewer: [email or web address] Initial Review Date: 09/29/2018 Generated: 10/02/18 6:06 pm Comments DCP- Discharge Planning Updated by [email or web address]: Roxann Molinanathan on 10/02/18 1:[address] Spoke with Henna at [facility] and Rehab. She states she will inform Yara that patient now has DC orders. I faxed DC MAR and orders. She will go to [facility] and Rehab to a skilled (Medicare) bed today via ambulance. media coordinator and nurse (Luz Elena) informed. DCP- Discharge Planning Updated by [email or web address]: Roxann Molinanathan on 09/30/18 12:[address] [facility] states they could accept the patient tomorrow if insurance is verified. She will notify me tomorrow. CM will continue to follow and assist with discharge planning/needs. DCP- Discharge Planning Updated by [email or web address]: Roxann Giron on 09/29/18 1:[address] Patient Name: SHANT MARTINEZ Admission Status: ER Accout number: [id number] Admission Date: 09-27-2018 : 1935 Admission Diagnosis: Attending: CHARY ARVIZU Current LOS: 2 Anticipated DC Date: Planned Disposition: [facility] Facility Primary Insurance: MEDICARE A & B Discharge Planning Comments: CM met with patient and her daughter (Ioana) to discuss discharge planning. Patient is drowsy from surgery and daughter answers the questions asked. States he mom lives at [facility] in assisted living. States she is independent with her ADL's. States [facility] provides meals and activities. States her mother does not drive, but her and her sister drive her where she needs to go. States her mother walks independently, but [facility] has a walker if she needs one. States her and her sister would like her to go to [facility] and rehab prior to discharge to [facility]. [facility] her sister, Fani, has already contacted [facility] and Rehab. I called and spoke to Yara and referral sent. CM will continue to follow and assist with discharge planning/needs. Barrel Builder: Roxann Giron DCPIA - Discharge Planning Initial Assessment Updated by [email or web address]: Roxann Giron on 09/29/18 2:38 pm * Is the patient Alert and Oriented? Yes * How many steps to enter\exit or inside your home? 0/0 * PCP Dr. Swanson * Pharmacy [facility] on [facility] * Preadmission Environment Assisted Living * Facility Name [facility] * ADLs Independent * Equipment Walker * List name and contact numbers for known caregivers / representatives who currently or will assist patient after discharge: Ioana [facility] - [phone] Fani Adame [facility] - [phone] * Verbal permission to speak to the caregivers and representatives has been obtained from the patient. Yes * Community resources currently utilized Home Health * Please name any agencies selected above. [facility] * Additional services required to return to the preadmission environment? Yes * Can the patient safely return to the preadmission environment? No * Has this patient been hospitalized within the prior 30 days at any hospital? No Coverage Notice Reviewer: [id number] - Roxann Giron Notice Issued Date-Time: 10/02/2018 13:54 Notice Type: IM Discharge Notice Notice Delivered To: Family Member Relationship to Patient: Daughter [place]ot[place] Packer Name: Fani Adame Delivery Method: HAND - Hand Delivered Clau Days: Prior Verbal Notification: Recipient Understood Notice: Yes Recipient Signature: Yes Med Rec Note Co-signed by Attending: Coverage Notice Comment: IMM explained, signed, copy given, original placed in MR Last DP export: 10/02/18 1:01 p Patient Name: SHANT MARTINEZ Page 11057 at 1706 All edits/amendments must be made on the electronic document DICTATION DATE: 10/02/18 1709 DIRT BIKE RACER: RICHA 10/02/18 1706 RPT#: [id number] DC DATE:10/02/18 STATUS: DIS IN [facility] [address] [place] [address] END OF REPORT
== END 2018-10-02 15:29 | DRG 470 ==
LOC: D.ER 18:11 → D.EDHOLD 20:50 → D.MS 20:50
PROVIDERS: Emergency Medicine; Family Medicine; Orthopaedic Surgery; ADMIT Internal Medicine Nephrology
PROC: 0SRS0JZ Replacement of Left Hip Joint, Femoral Surface with Synthetic Substitute, Open Approach (ICD-10-PCS; principal; 2018-09-28 15:00)
DX: S72.002A Fracture of unspecified part of neck of left femur, initial encounter for closed fracture (principal); D62 Acute posthemorrhagic anemia; F05 Delirium due to known physiological condition; W19.XXXA Unspecified fall, initial encounter; Z86.73 Personal history of transient ischemic attack (TIA), and cerebral infarction without residual deficits; I10 Essential (primary) hypertension; F03.90 Unspecified dementia, unspecified severity, without behavioral disturbance, psychotic disturbance, mood disturbance, and anxiety